=== PATIENT | female | born 1960 | race Hispanic/Latino ===

== ENCOUNTER 2017-06-05 17:46 | Observation (INO) | payer MEDICARE ==
[2017-06-05 18:19] LABS: #Basophils 0.1 thou/uL (0.0-0.2); #Eosinphils 0.7 thou/uL (0.0-0.7); #Lymphocytes 1.7 thou/uL (1.20-3.40); #Monocytes 0.8 thou/uL (0.11-0.59); #Neutrophils 2.8 thou/uL (1.40-6.50); %Basophils 1.1 % (0.0-1.0); %Lymphocytes 28.2 % (21.0-51.0); Hematocrit 40.3 % (36.0-47.0); Mean Platelet Volume 6.8 fL (7.4-10.4); Red Blood Cell (RBC) Count 4.13 mill/uL (4.20-5.40)
[2017-06-05 18:42] LABS: ALT (SGPT) 59 U/L (8-55); AST (SGOT) 60 U/L (5-34); Alkaline Phosphatase 107 U/L (40-150); Anion Gap 12 mmol/L (10-20); BUN (Urea Nitrogen) 16 mg/dL (9.8-20.1); Bilirubin, Total 0.7 mg/dL (0.2-1.2); CK (CPK) 120 U/L (29-168); Calc. Creatinine Clearance 0 mL/min (70-130); Calcium 8.9 mg/dL (7.8-10.44); Carbon Dioxide 25 mmol/L (22-29); Chloride 110 mmol/L (98-107); Estimated GFR-MDRD 88; Globulin 3.2 g/dL (2.4-3.5); Protein, Total 6.8 g/dL (6.0-8.3)
[2017-06-05] MEDS ORDERED: Morphine 4 MG/ML VIAL ONE (21:05)
[2017-06-05] MEDS ORDERED: Ondansetron ODT 4 MG TAB SL PRN (21:50)
[2017-06-05] MEDS ORDERED: Acetaminophen 325 MG TAB PO PRN (21:50)
[2017-06-05] MEDS ORDERED: Ondansetron HCl/PF 4 MG/2 ML Vial IVP PRN (21:50)
[2017-06-05 22:02] VITALS: BMI 29.8
[2017-06-05 22:49] LABS: Troponin I Less than 0.010 ng/mL (< 0.028)
[2017-06-05] MEDS ORDERED: Gabapentin 300 MG CAP PO SCH (23:00)
[2017-06-05] MEDS ORDERED: Baclofen 10 MG TAB PO SCH (23:00)
[2017-06-06 01:15] LABS: Troponin I Less than 0.010 ng/mL (< 0.028)
[2017-06-06] MEDS ORDERED: Nitroglycerin 0.4 MG TAB (25 Tab Bottle) PO PRN (02:33)
[2017-06-06] MEDS ORDERED: Calcium Carbonate 500 MG ChewTAB PO PRN (02:34)
[2017-06-06] MEDS ORDERED: Ondansetron ODT 4 MG TAB PO PRN (02:34)
[2017-06-06] MEDS ORDERED: Senokot 8.6 MG TAB PO PRN (02:34)
[2017-06-06] MEDS ORDERED: Ondansetron HCl/PF 4 MG/2 ML Vial IVP PRN (02:34)
--- NOTE | 2017-06-06 03:10 | HP ---
DATE OF ADMISSION: 06/05/2017 The patient was seen and examined on 06/05/2017 PRIMARY CARE PHYSICIAN: Rodri Martínez MD CHIEF COMPLAINT: Chest discomfort of 4 days duration. HISTORY OF PRESENT ILLNESS: Patient is a 57-year-old female with chronic pain syndrome and hypertens ion who presented to the emergency room with chest discomfort of 4 days duration. She was admitted i n 2011 and had a negative stress test at that time. Over the last 4 days, the patient has on and off chest discomfort that is worse on [id number] e xertion. The pain is dull in nature, 6/10 without any radiation. She denies any relieving factor. She also noticed some swelling over the upper chest wall on the right earlier today. There was also mild discomfort over this area. She denies any nausea, vomiting, lightheadedness, dizziness, palpita tions, or syncope. No recent immobilization, travel, nausea, vomiting, dyspepsia reported. In the emergency room, her initial vital signs showed temperature 98.4, respirations 13, pulse rate o f 95, blood pressure of 143/74 with O2 saturation 98% on room air. Initial EKG showed sinus rhythm w ith left axis deviation and left ventricular hypertrophy. Chest CT noncontrast was done at [facility], which showed some nodularity to the hepatic contour incompletely imaged. She received morphine and aspirin in the emergency room. PAST MEDICAL HISTORY: 1. Hypertension, diet controlled. 2. Negative Cardiolite stress test in 2011. 3. Chronic pain syndrome. 4. History of anxiety and panic attacks. PAST SURGICAL HISTORY: 1. Low back surgery in 2007. 2. Bilateral tubal ligation. ALLERGIES: Patient denies any drug allergies. CURRENT HOME MEDICATIONS: Baclofen 10 mg b.i.d., gabapentin 600 mg b.i.d., valsartan/hydrochlorothia zide 320/12.5 mg daily. FAMILY HISTORY: Father of complications from coronary artery disease. Sister in early 50s from complications of congestive heart failure. SOCIAL HISTORY: She denies any alcohol, tobacco, or drug use. REVIEW OF SYSTEMS: The following complete review of systems was negative, unless otherwise mentioned in the HPI or below: Constitutional: Weight loss or gain, ability to conduct usual activities. Sk in: Rash, itching. Eyes: Double vision, pain. ENT/Mouth: Nose bleeding, neck stiffness, pain, te nderness. Cardiovascular: Palpitations, dyspnea on exertion, orthopnea. Respiratory: Shortness of breath, wheezing, cough, hemoptysis, fever or night sweats. Gastrointestinal: Poor appetite, abdominal pain, heartburn, nausea, vomiting , constipation, or diarrhea. Genitourinary: Urgency, frequency, dysuria, nocturia. Musculoskeletal : Pain, swelling. Neurologic/Psychiatric: Anxiety, depression. Allergy/Immunologic: Skin rash, b leeding tendency. PHYSICAL EXAMINATION: VITAL SIGNS: As discussed above. GENERAL: A 57-year-old female, in no apparent distress. Chest discomfort improved with morphine. HEENT: Head, atraumatic, normocephalic. Sclerae are anicteric. Moist mucous membranes. No oral le sylvia. NECK: Supple. No JVD, no carotid bruit. LUNGS: Clear to auscultation bilaterally. HEART: S1, S2 present. Regular rate and rhythm. Minimal reproducible chest wall tenderness. There was also marked around 10 cm in diameter over the right chest wall below the clavicle. There was mi ld tenderness without any erythema. It was soft on palpation. ABDOMEN: Soft, nontender, bowel soun ds present. EXTREMITIES: No edema or calf tenderness. NEUROLOGIC: Grossly nonfocal. Moves all four extremities. PSYCHIATRY: Alert, awake, oriented x3. SKIN: Warm and dry. LYMPH NODES: No palpable lymph nodes in the neck. PERIPHERAL VASCULAR: Radial pulses palpable bilaterally. MUSCULOSKELETAL: No joint swelling or tenderness. LABORATORY AND X-RAY FINDINGS: CBC showed WBC 5.4 with hemoglobin 12.4, hematocrit 38.1, platelet of 207. PT, INR, PTT in normal range. Chemistries showed sodium of 143, potassium 4.0, chloride of 11 3, bicarbonate 22, BUN 17, creatinine 0.68, glucose of 94. AST was 58, ALT was 57. Troponins in nor mal range. BNP 80.5. CT scan of the chest by my review as discussed above. EKG by my review as dis cussed above. IMPRESSION AND PLAN: 1. Chest discomfort with family history of premature coronary artery disease. We will schedule a Ca rdiolite stress test in a.m. Serial cardiac enzymes will be done. We will continue telemetry monito ring. The patient has been started on low dose aspirin. 2. Chronic pain syndrome. We will continue gabapentin with baclofen. 3. Hypertension. We will continue valsartan/hydrochlorothiazide. 4. Chronic kidney disease, stage 2. 5. Abnormal liver function tests with questionable cirrhotic morphology of the liver on noncontrast CT scan of the chest. Patient will require an outpatient GI evaluation. Primary care physician cory boswell to follow. 6. Family history of heart disease. Plan of care was discussed with the patient in detail and she stated understanding.
[2017-06-06] MEDS ORDERED: FLU VACC QS2017-18 36 mo. & older 0.5 ML SYRINGE IM ONE (09:00)
[2017-06-06] MEDS ORDERED: Non-Formulary Item 1 EACH (Valsartan/Hydrochlorothiazide [Valsartan-Hctz 320-12.5 Mg Tab] PO SCH (09:00)
[2017-06-06] MEDS ORDERED: Valsartan 80 MG TAB PO SCH ×2 (09:00)
[2017-06-06] MEDS ORDERED: Hydrochlorothiazide 25 MG TAB PO SCH (09:00)
[2017-06-06] MEDS ORDERED: Aspirin 81 mg Enteric Coated Tablet PO SCH (09:00)
[2017-06-06] MEDS ORDERED: Gabapentin 300 MG CAP PO SCH (09:00)
[2017-06-06] MEDS ORDERED: Baclofen 10 MG TAB PO SCH (09:00)
[2017-06-06 12:07] VITALS: BP 138/88; TEMP 97.7
--- NOTE | 2017-06-06 13:45 | DIS ---
TRANSFER OF CARE NOTE DATE OF ADMISSION: 06/05/2017 DATE OF DISCHARGE: 06/06/2017 DISCHARGE DISPOSITION: Home. PRIMARY CARE PROVIDER: Dr. Martínze FINAL DIAGNOSES: 1. Noncardiac chest pain. 2. Hypertension. 3. Chronic pain. 4. Elevated transaminases, mild. DISCHARGE MEDICATIONS: Baclofen 10 mg twice a day, gabapentin 600 mg twice a day, valsartan HCT 320/ 12.5 once a day. ALLERGIES: No known drug allergies. PENDING AT THE TIME OF DISCHARGE: Nothing. CODE STATUS: FULL. HOSPITAL COURSE: The patient admitted through [facility] to [facility] with chest discomfort of 4 days duration, dull, no radiation, no associated symptoms. She had a previous negative Cardiolite stress test 5 years ago. Her EKG showed no ST-T segment changes. LABORATORY: CBC is essentially normal. Comp metabolic profile, AST 60, ALT 59, alkaline phosphatase normal, total bilirubin normal. Cardiac enzymes normal x3. The patient underwent nuclear medicine cardiac stress test which is normal. This has been discussed with her. Currently, her vital signs are stable. Cardiovascular exam is normal. She is being discharged home on her usual medications. CONSULTATIONS: None. PROCEDURES: None. Her CT scan of her chest done in [place] suggested cirrhotic morphology of the liver. It is rec ommended that her primary care doctor referred her to Gastroenterology for evaluation of abnormal mor phology and abnormal liver function test.
[2017-06-06] MEDS ORDERED: Regadenoson 0.4 MG/5 ML SYRINGE ONE (14:13)
--- NOTE | 2017-06-06 15:31 | NM ---
MYOCARDIAL PERFUSION SCAN: HISTORY: Chest pain. TECHNIQUE: The patient was given 9 mCi of technetium sestamibi for rest imaging and 29 mCi for stress imaging. Patient was stressed according to Lexiscan protocol. Left ventricle imaged with SPECT imaging with CT attenuation. FINDINGS: Left ventricle shows normal activity on both stress and rest images. No evidence of reversible ischem ia. Wall motion is normal. Ejection fraction is recorded at 68%. IMPRESSION: Negative sestamibi stress test. POS: MAMI
== END 2017-06-06 17:30 | disposition home or self-care (01) ==
LOC: ERS 17:46 → 2SW 19:02
PROVIDERS: ADMIT Internal Medicine; ATTEND Internal Medicine
DX: R07.89 Other chest pain (principal); I12.9 Hypertensive chronic kidney disease with stage 1 through stage 4 chronic kidney disease, or unspecified chronic kidney disease; N18.2 Chronic kidney disease, stage 2 (mild); G89.4 Chronic pain syndrome; R74.0 Nonspecific elevation of levels of transaminase and lactic acid dehydrogenase [LDH]; F41.9 Anxiety disorder, unspecified; I25.10 Atherosclerotic heart disease of native coronary artery without angina pectoris; J45.909 Unspecified asthma, uncomplicated; Z86.73 Personal history of transient ischemic attack (TIA), and cerebral infarction without residual deficits; Z79.899 Other long term (current) drug therapy; Z82.49 Family history of ischemic heart disease and other diseases of the circulatory system; Z98.51 Tubal ligation status; Z98.890 Other specified postprocedural states
CPT/HCPCS: 78452; 80053; 82550; 82553; 83690; 84484 ×2; 85025; 93005; 93017; 94760; 96374; 99285; A9500; G0378; 36415; J2270; J2785